=== PATIENT | female | born 2000 | race Caucasian/White ===

== ENCOUNTER 2022-02-06 03:40 | Emergency (ER) | payer OTHER ==
[~2022-02-06] VITALS: Ht 157.5 cm; Wt 47.6 kg
[2022-02-06 03:46] VITALS: BP 105/58
--- NOTE | 2022-02-06 04:02 | NUR ---
Patient taken to bed 12. Patient lying in bed, A/Ox4, chest rise and fall symmetrical, no s/s of distress. Addendum: 02/06/22 at 0638 by [id number] Patient taken to bed 12. Patient lying in bed, A/Ox4, chest rise and fall symmetrical, no s/s of distress. Patient is vomiting in bag.
[2022-02-06] MEDS ORDERED: ONDANSETRON 4 MG ODT PO ONE (04:20)
--- NOTE | 2022-02-06 04:27 | NUR ---
PT RETURN FROM CT
--- NOTE | 2022-02-06 05:10 | NUR ---
Patient lying in bed, A/Ox4, chest rise and fall symmetrical, no s/s of distress.
[2022-02-06] MEDS ORDERED: KETOROLAC 30 MG/ML VIAL IM ONE (05:35)
[2022-02-06 05:46] LABS: BARBITURATE, URINE NEGATIVE ng/ml (NEG <=200); BENZODIAZEPINE, URINE NEGATIVE ng/mL (NEG <=200); CANNABINOID, URINE POSITIVE ng/mL (NEG <=50); COCAINE, URINE NEGATIVE ng/mL (NEG <=300); OPIATE, URINE NEGATIVE ng/mL (NEG <=2000); PHENCYCLIDINE SCREEN,URINE NEGATIVE ng/mL (NEG <=25)
--- NOTE | 2022-02-06 06:03 | NUR ---
Patient lying in bed, A/Ox4, chest rise and fall symmetrical, no s/s of distress.
[2022-02-06] MEDS ORDERED: ACET-9800 PO (06:08)
[2022-02-06] MEDS ORDERED: ONDA-188 PO (06:08)
[2022-02-06 06:25] VITALS: BP 114/74
== END 2022-02-06 06:39 | disposition home or self-care (01) ==
LOC: MED 03:40
DX: S09.90XA Unspecified injury of head, initial encounter (principal); R55 Syncope and collapse; R42 Dizziness and giddiness; F12.90 Cannabis use, unspecified, uncomplicated; Z79.899 Other long term (current) drug therapy; W19.XXXA Unspecified fall, initial encounter; Y93.89 Activity, other specified; Y92.89 Other specified places as the place of occurrence of the external cause; Y99.8 Other external cause status
CPT/HCPCS: 70450; 80305; 93005; 96372; 99285; J1885; Q0162